=== PATIENT | male | born 1995 | race Two or more races ===

== ENCOUNTER 2023-11-15 10:09 | Emergency (ER) | payer OTHER ==
[~2023-11-15] VITALS: Ht 170.2 cm; Wt 109.1 kg
[2023-11-15 10:13] VITALS: BP 120/63; PULSE 68; RESP 18; TEMP 97.9
[2023-11-15] MEDS: MAG HYDROX/ALUMINUM HYD/SIMETH ES 30 ML SUSPENSION UDCUP PO ONE (11:17)
[2023-11-15] MEDS: FAMOTIDINE 20 MG TABLET PO ONE (11:17)
[2023-11-15] MEDS: IBUPROFEN 600 MG TABLET PO ONE (11:18)
[2023-11-15 11:32] LABS: BASOPHILS % (AUTO) 0.3 % (0.0-2.0); EOSINOPHILS % (AUTO) 3.2 % (1.0-6.0); HEMATOCRIT 44.5 % (41-53); HEMOGLOBIN 15.1 g/dL (13.5-17.5); LYMPHOCYTES # (AUTO) 2.8 K/uL (1.0-4.8); LYMPHOCYTES % (AUTO) 28.9 % (22.0-44.0); MEAN CORPUSCULAR HEMOGLOBIN 29.7 pg (26.0-34.0); MEAN CORPUSCULAR VOLUME 87 fL (80-100); MONOCYTES # (AUTO) 0.6 K/uL (0.1-1.0); MONOCYTES % (AUTO) 6.1 % (2.0-9.0); NEUTROPHILS % (AUTO) 61.5 % (40.0-70.0); PLATELET COUNT (AUTO) 239 K/uL (150-450); RED CELL DISTRIBUTION WIDTH 13.5 % (11.5-14.5); WHITE BLOOD COUNT (AUTO) 9.7 K/uL (4.5-11.0)
[2023-11-15 11:40] LABS: CARBON DIOXIDE 25 mmol/L (22-29); CREATININE 0.87 mg/dL (0.60-1.30); GLOMERULAR FILTR. RATE CALC > 60 mL/min (>60); GLUCOSE,RANDOM 108 mg/dL (70-110); UREA NITROGEN, BLOOD 16 mg/dL (7-18)
[2023-11-15 11:51] LABS: ANION GAP 9 mmol/L (8-16); CHLORIDE 106 mmol/L (98-107); SODIUM SERUM 140 mmol/L (136-145)
== END 2023-11-15 14:13 | disposition home or self-care (01) ==
LOC: EMS 10:09
DX: R07.89 Other chest pain (principal); R10.9 Unspecified abdominal pain; R11.10 Vomiting, unspecified
CPT/HCPCS: 80048; 85025; 99284